=== PATIENT | male | born 1960 | race Caucasian/White ===

== ENCOUNTER → 2018-10-25 | Day surgery (SDC) | payer OTHER ==
[2018-10-18 11:03] LABS: BASOPHILS # (AUTO) 0.1 (0.0-0.1); BASOPHILS % 1.1 % (0.0-1.0); EOSINOPHILS # (AUTO) 0.1 (0.0-0.4); EOSINOPHILS % 1.9 % (0.0-6.0); HEMATOCRIT 44.8 % (38.2-49.6); HEMOGLOBIN 15.6 g/dL (14.0-18.0); LYMPHOCYTES # (AUTO) 2.7 (1.0-3.2); LYMPHOCYTES % 51.8 % (18.0-39.1); MEAN CORPUSCULAR HEMOGLOBIN 30.6 pg (28-32); MEAN CORPUSCULAR HGB CONC 34.8 g/dL (31-35); MONOCYTES # (AUTO) 0.5 (0.2-0.8); MONOCYTES % 9.1 % (4.4-11.3); NEUTROPHILS # (AUTO) 1.9 (2.1-6.9); NEUTROPHILS % 35.9 % (38.7-80.0); PLATELET COUNT 184 x10e3/uL (140-360); RED BLOOD COUNT 5.09 x10e6/uL (4.3-5.7); RED CELL DISTRIBUTION WIDTH 12.2 % (11.7-14.4)
[2018-10-18 11:10] LABS: ANION GAP 13.6 mmol/L (8-16); BLOOD UREA NITROGEN 19 mg/dL (7-26); BUN/CREATININE RATIO 18 (6-25); CALCIUM 9.3 mg/dL (8.4-10.2); CARBON DIOXIDE 23 mmol/L (22-29); CHLORIDE 103 mmol/L (98-107); CREATININE, SERUM 1.03 mg/dL (0.72-1.25); EST GLOMERULAR FILTRATION RATE > 60 ML/MIN (60-); GLUCOSE 111 mg/dL (74-118); POTASSIUM 4.6 mmol/L (3.5-5.1); SODIUM 135 mmol/L (136-145)
--- NOTE | 2018-10-18 11:32 | Diagnostic Imaging Report ---
EXAMINATION: PA and lateral views of the chest. COMPARISON: None CLINICAL HISTORY: Preoperative evaluation, DISCUSSION: Lines/tubes: Hernia Lungs: The lungs are well inflated and clear. No pneumonia or pulmonary edema. Pleura: No pleural effusion or pneumothorax. Heart and mediastinum: The cardiomediastinal silhouette is normal. Bones and soft tissues: No acute bony abnormalities. IMPRESSION: No acute cardiopulmonary abnormalities. Signed by: Dr. Javid Huang M.D. on 10/18/2018 11:29 AM
[~2018-10-25] MED LIST: ACETAMINOPHEN 1000 MG/100 ML IV ONE; ASPIR 8181 MG PO; ASPIRIN325 MG PO; BUPIVACAINE 0.5%/EPI 30 ML SDV INJ ONE; CRESTOR10 MG PO; DEXAMETHASONE SOD PHOS INJ 4 MG/ML VIAL ONE; FENTANYL CITRATE/PF 100MCG/2 ML INJ ONE; HYDROCODONE/APAP 7.5MG-325MG 1 EA TAB ONE; KETOROLAC TROMETHAMINE 30 MG/ML VIAL ONE; LIDOCAINE HCL 2% LOCAL INJ 5 ML SDV VIAL INJ ONE; LOVAZA1 GM PO; MIDAZOLAM HCL 2 MG/2 ML VIAL ONE; ONDANSETRON HCL INJ 2MG/ML 2ML 2 MG/ML VIAL ONE; PROPOFOL IV EMULSION 10 MG/ML 20 ML VIAL ONE; RAMIPRIL5 MG PO; ROCURONIUM BROMIDE 10 MG/ML 5ML VIAL ONE; SEVOFLURANE INHAL SOLN 250 ML PEN BTL ONE
--- OUTSIDE RECORDS SUMMARY | 2018-10-25 05:37 | XMS REPORT | Continuity of Care Document ---
Author Author [facility] Interface Address Unknown Phone Unavailable Problems Problem Status Onset Date Classification Date Reported Comments Source Acute otitis externa 02/23/2017 Diagnosis 02/23/2017 [facility] Otitis Externa Problem 02/23/2017 [facility] Otitis Media Problem 02/23/2017 [facility] Acute Upper Respiratory Infection Problem 02/23/2017 [facility] Impetigo Problem 02/23/2017 [facility] Medications Medication Details Route Status Patient Instructions Ordering Provider Order Date Source Acetaminophen 300 MG / Codeine Phosphate 30 MG Oral Tablet acetaminophen 300 mg-codeine 30 mg tablet Active [facility] Amoxicillin 500 MG Oral Capsule amoxicillin 500 mg capsule Active [facility] Amoxicillin 875 MG Oral Tablet amoxicillin 875 mg tablet TAKE ONE (1) TABLET(S) BY MOUTH TWICE A DAY FOR 10 DAYS. Active [facility] aspirin aspirin Active [facility] Azithromycin 250 MG Oral Tablet azithromycin 250 mg tablet TAKE TWO (2) TABS BY MOUTH TODAY,THEN TAKE 1 TAB DAILY FOR 4 DAYS. Active [facility] Ciprofloxacin 3 MG/ML / Dexamethasone 1 MG/ML Otic Suspension [Ciprodex] Ciprodex 0.3 %-0.1 % ear drops,suspension INSTILL 4 DROPS INTO AFFECTED EAR(S) BY OTIC ROUTE 2 TIMES PER DAY FOR 7 DAYS Active [facility] Crestor Crestor Active [facility] Rosuvastatin calcium 5 MG Oral Tablet [Crestor] Crestor 5 mg tablet TAKE ONE (1) TABLET(S) BY MOUTH ONCE A DAY. Active [facility] Dexamethasone 0.75 MG Oral Tablet dexamethasone 0.75 mg tablet Active [facility] Diclofenac Sodium 0.03 MG/MG Topical Gel diclofenac 3 % topical gel Active [facility] Ibuprofen 800 MG Oral Tablet ibuprofen 800 mg tablet Active [facility] Lovaza Lovaza Active [facility] 24 HR Niacin 1000 MG Extended Release Oral Tablet niacin ER 1,000 mg tablet,extended release 24 hr TAKE ONE (1) TABLET(S) BY MOUTH TWICE A DAY. Active [facility] Ofloxacin 3 MG/ML Otic Solution ofloxacin 0.3 % ear drops INSTILL 10 DROPS INTO AFFECTED LEFT EAR 2 TIMES A DAY FOR 7 DAYS. Active [facility] [place]-3 Acid Ethyl Esters (CORRECTION) 1000 MG Oral Capsule omega- 3 acid ethyl esters 1 gram capsule TAKE TWO (2) CAPSULE(S) BY MOUTH TWICE A DAY. Active [facility] Prednisone 20 MG Oral Tablet prednisone 20 mg tablet TAKE ONE (1) TABLET(S) BY MOUTH ONCE A DAY WITH MEALS FOR 3 DAYS. Active [facility] Ramipril 5 MG Oral Capsule ramipril 5 mg capsule TAKE ONE (1) CAPSULE(S) BY MOUTH ONCE A DAY. Active [facility] Rosuvastatin calcium 10 MG Oral Tablet rosuvastatin 10 mg tablet TAKE ONE (1) TABLET(S) BY MOUTH EVERY EVENING. Active [facility] testosterone cypionate 200 MG/ML Injectable Solution testosterone cypionate 200 mg/mL intramuscular oil INJECT ONE (1) ML(S) INTRAMUSCULARLY EVERY WEEK. Active [facility] tramadol hydrochloride 50 MG Oral Tablet tramadol 50 mg tablet TAKE ONE (1) TABLET(S) BY MOUTH EVERY FOUR HOURS NEEDED. Active [facility] icosapent ethyl 1000 MG Oral Capsule [Vascepa] Vascepa 1 gram capsule TAKE TWO (2) CAPSULE(S) BY MOUTH TWICE A DAY. Active [facility] Allergies, Adverse Reactions, Alerts Substance Category Reaction Severity Reaction type Status Date Reported Comments Source Aleve Rash Severe Allergy to substance 02/23/2017 [facility] Immunizations Immunization Date Given Site Status Last Updated Comments Source Results Order Name Results Value Reference Range Date Interpretation Comments Source Vital Signs Vital Sign Value Date Comments Source Diastolic (mm Hg) 78 02/23/2017 [facility] Height 72 02/23/2017 [facility] Systolic (mm Hg) 124 02/23/2017 [facility] Weight 285 02/23/2017 [facility] Encounters Location Location Details Encounter Type Encounter Number Reason For Visit Attending Provider ADM Date DC Date Status Source [place] - [facility] - [id number] Riley, JEANNETTE-C: [address] [place] [address], Ph. [id number] Jd Riley 02/23/2017 [facility] Procedures Procedure Code Date Perfomer Comments Source Appendectomy [facility]
--- OUTSIDE RECORDS SUMMARY | 2018-10-25 05:37 | XMS REPORT ---
[facility] Address Unknown Phone Unavailable Care Team Providers Care Uat Tester Name Role Phone Juventino SANCHEZ Unavailable Unavailable Problems This patient has no known problems. Allergies, Adverse Reactions, Alerts This patient has no known allergies or adverse reactions. Medications This patient has no known medications. Results Test Description Test Time Test Comments Text Results Atomic Results Result Comments CHEST 2 VIEWS 2018-10-18 11:28:00 [place] [id number] Patient Name: NICOLE BANKS MR #: [id number] : 1960 Age/Sex: 58/M Req #: [id number] Adm Physician: Ordered by: JOSE SANCHEZ MD Report #: [id number] Location: OR Room/Bed: Procedure: [id number] DX/CHEST 2 VIEWS Exam Date: 10/18/18 Exam Time: 1100 REPORT STATUS: Signed EXAMINATION: PA and lateral views of the chest. COM PARISON: None CLINICAL HISTORY: Preoperative evaluation, DISCUSSION: Lines/tubes: Hernia Lungs: The lungs are well inflated and clear. No pneumonia or pulmonary edema. Pleura: No pleural effusion or pneumothorax. Heart and mediastinum: The cardiomediastinal silhouette is normal. Bones and soft tissues: No acute bony abnormalities. IMPRESSION: No acute cardiopulmonary abnormalities. Signed by: Dr. Kai Espinoza M.D. on 10/18/2018 11:29 AM Dictated By: KAI ESPINOZA MD [id number] Transcribed By: BLAIRE on 10/18/18 1129 COPY TO: JOSE SANCHEZ MD
--- OUTSIDE RECORDS SUMMARY | 2018-10-25 05:37 | XMS REPORT | Encounter Summary ---
Author Organization Unknown Address [address] [place] [id number] Phone [phone] Reason for Visit Medical Complaint Instructions 1. Acute otitis externa Ciprodex 0.3 %-0.1 % ear drops,suspension Discussion Note: None recorded. Patient educational handouts: No information available. Plan of Care Patient Instructions use drops as directed. follow up pcp. Reminders Provider Appointments None recorded. Lab None recorded. Referral None recorded. Procedures None recorded. Surgeries None recorded. Imaging None recorded. Medications Name Start Date acetaminophen 300 mg-codeine 30 mg tablet amoxicillin 500 mg capsule amoxicillin 875 mg tablet TAKE ONE (1) TABLET(S) BY MOUTH TWICE A DAY FOR 10 DAYS. aspirin azithromycin 250 mg tablet TAKE TWO (2) TABS BY MOUTH TODAY,THEN TAKE 1 TAB DAILY FOR 4 DAYS. Ciprodex 0.3 %-0.1 % ear drops,suspension INSTILL 4 DROPS INTO AFFECTED EAR(S) BY OTIC ROUTE 2 TIMES PER DAY FOR 7 DAYS Crestor Crestor 5 mg tablet TAKE ONE (1) TABLET(S) BY MOUTH ONCE A DAY. dexamethasone 0.75 mg tablet diclofenac 3 % topical gel ibuprofen 800 mg tablet [place] niacin ER 1,000 mg tablet,extended release 24 hr TAKE ONE (1) TABLET(S) BY MOUTH TWICE A DAY. ofloxacin 0.3 % ear drops INSTILL 10 DROPS INTO AFFECTED LEFT EAR 2 TIMES A DAY FOR 7 DAYS. omega-3 acid ethyl esters 1 gram capsule TAKE TWO (2) CAPSULE(S) BY MOUTH TWICE A DAY. prednisone 20 mg tablet TAKE ONE (1) TABLET(S) BY MOUTH ONCE A DAY WITH MEALS FOR 3 DAYS. ramipril 5 mg capsule TAKE ONE (1) CAPSULE(S) BY MOUTH ONCE A DAY. rosuvastatin 10 mg tablet TAKE ONE (1) TABLET(S) BY MOUTH EVERY EVENING. testosterone cypionate 200 mg/mL intramuscular oil INJECT ONE (1) ML(S) INTRAMUSCULARLY EVERY WEEK. tramadol 50 mg tablet TAKE ONE (1) TABLET(S) BY MOUTH EVERY FOUR HOURS NEEDED. Vascepa 1 gram capsule TAKE TWO (2) CAPSULE(S) BY MOUTH TWICE A DAY. Medications Administered None recorded. Vitals Height Weight BMI Blood Pressure 6 ft 285 lbs 38.7 kg/m2 124/78 mm[Hg] Lab Results None recorded. Allergies Code Code System Name Reaction Severity Onset 692354 RxNorm Aleve Rash Severe Problems Name Status Onset Date Source Otitis Externa Active Encounter Otitis Media Active Encounter Acute Upper Respiratory Infection Active Encounter Impetigo Active Encounter Procedures Date Name Performed by Appendectomy Information not available Vaccine List None recorded. Social History Smoking Status Current Some Day Smoker Past Encounters 02/23/2017 Acute Otitis Externa Jd Riley, [facility]: [address] [place] [address], Ph. History of Present Illness Ear Complaint Reported By: Patient HPI: Location: bilateral. Quality: ears feel full/plugged. Severity: continuous. Duration: constant. Onset/Timing: still present. Context: no sick contacts, no recent swimming/water in ear, no exposure to second hand smoke, no head trauma, not grinding teeth, no recent air travel. Modifying factors: does not hurt to lie on, or pull on ear, does not hurt to chew. Associated Symptoms: no nose/sinus problems, no popping noise in the ears, no ringing in the ears, no fever, no chills, no dizziness, no vertigo, no headache, no muscle aches, discharge from the ears, earache Review of Systems:ROS as noted in the HPI Review of Systems Basic Reported By: Patient Physical Exam Adult Basic, Adult Male Complete Reported By: Patient Constitutional: General Appearance: obese. Level of Distress: NAD. Ambulation: ambulating normally Psychiatric: Mental Status: active and alert [id number]-Drll-Rplzv-Throat: Ears: outer ear tenderness; erythema canal. Hearing: hearing decreased. Nose: no lesions on external nose, nares patent, no septal deviation, nasal passages clear, no sinus tenderness, no nasal discharge. Lips, Teeth, and Gums: no mouth or lip ulcers. Oropharynx: moist mucous membranes, no erythema, no exudates, tonsils not enlarged Neck: Neck: trachea midline. Lymph Nodes: no cervical LAD Lungs: Respiratory effort: no dyspnea, no tachypnea, no use of accessory muscles, no intercostal retractions. Auscultation: breath sounds normal Cardiovascular: Heart Auscultation: RRR, no murmurs
--- NOTE | 2018-10-25 07:15 | NUR ---
SPIRITUAL CARE - Pre-Surgery Assessment: Pt in bed. Pt reported supportive attention from family and friends. Intervention: I provided pastoral presence, hospitality, and sympathetic listening. I acquainted pt with availability of medical territory manager while hospitalized. Outcome: Pt expressed appreciation for visit. No need for follow up indicated at this time. SHAHID Pereiralain Spiritual Care Department O: [phone] Pager: [phone] ([phone] number calling from)
[2018-10-25 13:15] VITALS: BP 104/72
--- NOTE | 2018-10-25 16:30 | Operative Report ---
DATE OF PROCEDURE: October 25, 2018 PREOPERATIVE DIAGNOSIS: Incarcerated umbilical hernia. POSTOPERATIVE DIAGNOSIS: Incarcerated umbilical hernia. OPERATION PERFORMED: Repair of incarcerated umbilical hernia with large Ventralex patch. ANESTHESIA: General. COMPLICATIONS: None. ESTIMATED BLOOD LOSS: Minimal. DESCRIPTION OF PROCEDURE: With the patient lying in bed in the supine position under good general endotracheal anesthesia, the abdomen was prepped with Betadine solution and draped in the usual manner. A semilunar subumbilical incision was made. It was carried down through the subcutaneous tissue down to the fascia. There was a large hernia sac present, which was then circumferentially dissected. The hernia sac was then opened, and a large amount of omentum was then found incarcerated within the hernia sac. This had to be resected after ligating it with 2-0 Vicryl. After this was done, the excess of the hernia sac was then resected with the cautery, and hemostasis was ascertained. A large Ventralex patch was then placed through the defect and deployed intraabdominally without any difficulty, and the mesh was then anchored to the anterior chest wall with interrupted sutures of 0 Ethibond, with the defect being closed at the midline transversely using interrupted sutures of 0 Ethibond anchoring the mesh as well. This gave us a satisfactory closure without any tension. The whole area was then thoroughly irrigated. Perfect hemostasis was ascertained. The fascia was then infiltrated with 1/4 percent Marcaine. The hemostasis was ascertained, and the umbilicus was then tacked back down to the midline fascia with 3-0 Vicryl. The subcutaneous tissue was approximated with 3-0 Vicryl, and the skin was closed with interrupted vertical mattress sutures of 3-0 silk. A dressing was applied. The sponge, lap and needle count was correct. The patient tolerated the procedure well and returned to the recovery room in stable condition. Job#: [id number]
== END | disposition home or self-care (01) ==
LOC: OR 05:25
PROVIDERS: ATTEND Surgery
DX: K42.0 Umbilical hernia with obstruction, without gangrene (principal); K21.9 Gastro-esophageal reflux disease without esophagitis; Z87.442 Personal history of urinary calculi; Z88.6 Allergy status to analgesic agent; I10 Essential (primary) hypertension; E78.5 Hyperlipidemia, unspecified; Z01.810 Encounter for preprocedural cardiovascular examination; Z01.812 Encounter for preprocedural laboratory examination; Z01.811 Encounter for preprocedural respiratory examination
CPT/HCPCS: 36415; 49587; 71046; 80048; 85025; 93005; C1781; J0131; J1100; J1885; J2001; J2250; J2405; J2704